=== PATIENT | male | born 1995 | race Caucasian/White ===

== ENCOUNTER 2016-10-26 03:26 | Emergency (ER) | payer OTHER | END 2016-10-26 05:21 | disposition home or self-care (01) | LOC: D.ER 03:26 | DX: Z03.89 Encounter for observation for other suspected diseases and conditions ruled out (principal); F31.9 Bipolar disorder, unspecified; F41.9 Anxiety disorder, unspecified ==

== ENCOUNTER 2016-10-29 23:20 | Emergency (ER) | payer OTHER ==
[2016-10-30 00:03] LABS: HEMATOCRIT 36.2 % (42.0-54.0); HEMOGLOBIN 12.8 g/dL (13.5-17.5); LYMPHOCYTES 15.9 % (15-50); MCHC 35.4 g/dL (31.0-37.0); MCV 87.7 fL (80.0-100.0); MEAN PLATELET VOLUME 10.1 fL (7.4-10.4); NEUTROPHILS 76.1 % (40-80); PLATELET COUNT 196 10x3/uL (130-400); RBC 4.13 10x6/uL (4.20-6.10); RDW 11.9 % (11.5-14.5); WBC 7.6 10x3/uL (4.8-10.8)
[2016-10-30 00:19] LABS: ALBUMIN 3.2 g/dL (3.4-5.0); ALKALINE PHOSPHATASE 87 U/L (46-116); ALT (SGPT) 35 U/L (10-68); BILIRUBIN - TOTAL 0.31 mg/dL (0.2-1.3); CALC OSMOLALITY 279 mosm/kg (275-300); CALCIUM 7.4 mg/dL (8.5-10.1); CARBON DIOXIDE 25.6 mmol/L (21.0-32.0); CHLORIDE - SERUM 105 mmol/L (98-107); CREATININE - SERUM 0.9 mg/dL (0.6-1.3); GLUCOSE 129 mg/dL (74-106); POTASSIUM - SERUM 3.2 mmol/L (3.5-5.1); PROTEIN - SERUM 6.8 g/dL (6.4-8.2); SODIUM 140 mmol/L (136-145); UREA NITROGEN 10 mg/dL (7-18); eGFR NON AFRICAN AMERICAN > 90 mL/min (90-120)
[2016-10-30 00:27] LABS: THYROID STIMULATING HORMONE 1.19 uIU/mL (0.36-3.74)
[2016-10-30 00:32] LABS: PRO BNP 3 pg/mL (0-125); TROPONIN-I < 0.017 ng/mL (0.000-0.060)
== END 2016-10-30 01:45 | disposition home or self-care (01) ==
LOC: D.ER 23:20
PROVIDERS: Family Medicine
DX: I47.1 Supraventricular tachycardia (principal); F41.9 Anxiety disorder, unspecified; F31.9 Bipolar disorder, unspecified